=== PATIENT | female | born 1955 | race Caucasian/White ===

== ENCOUNTER → 2019-06-12 | Outpatient (CLI) | payer OTHER ==
[~2019-06-12] MED LIST: ACCUNEB SO1.25 MG/1 INH; ALBUTEROL2.5 MG/0.5 INH; CHANTIX1 MG PO; DUONEB 2.5-0.5 M3 ML INH; IBUPROFEN 400400 M2; IPRATROPIU0.2 MG/1 M IH; LEVAQUIN 750 M750 MG PO; LEVOTHYROXIN0.175 MG PO; LEVOTHYROXINE 0.15MG PO; METFORMIN HCL500 MG PO; MUCINEX TA600 MG/TA2 PO; NORCO 5-325 TA1 EACH PO; ONDANSETRON HCL4 M2 PO; PREDNISONE 10 M10 MG PO; PROTONIX40 M1 PO; PULMICORT0.5 MG/22 INH; SINGULAIR 10 MG10 M1 PO; SPIRIVA INH; SYMBICORT160 MCG/4. INH; TAMIFLU75 MG PO; TESSALON PERLE100 MG PO; WELLBUTRIN SR150 MG PO; XOPENEX HF1 UDINHALE; XOPENEX HFA15 GM INH
== END ==
LOC: BC 14:23
DX: Z12.31 Encounter for screening mammogram for malignant neoplasm of breast (principal)